=== PATIENT | male | born 1960 | race Caucasian/White ===

== ENCOUNTER 2020-10-24 22:26 | Emergency (ER) | payer SELFPAY ==
[~2020-10-24] VITALS: Ht 170.2 cm; Wt 71.2 kg
[2020-10-24 22:28] VITALS: BP 123/60
[2020-10-25] MEDS ORDERED: TETANUS-DIPTH-ACEL PERTUSSIS 0.5ML SYR Tdap IM ONE (00:45)
== END 2020-10-25 01:02 | disposition home or self-care (01) ==
LOC: ER 22:26
DX: S61.412A Laceration without foreign body of left hand, initial encounter (principal); I10 Essential (primary) hypertension; Z88.0 Allergy status to penicillin; X58.XXXA Exposure to other specified factors, initial encounter; Y93.89 Activity, other specified; Y92.89 Other specified places as the place of occurrence of the external cause; Y99.8 Other external cause status
CPT/HCPCS: 12002; 90471; 90715